=== PATIENT | male | born 1960 | race Caucasian/White ===

== ENCOUNTER 2021-02-26 07:33 | Inpatient (IN) | payer MEDICAID, MEDICARE ==
[~2021-02-26] VITALS: Ht 185.4 cm; Wt 94.1 kg
[~2021-02-26 07:33] MED LIST: BUPR150T3 PO; DOXY100T2 PO; FENO160T9 PO; FLUO20CA33 PO; GLIP10TA10 PO; LOSA25TA26 PO; MELO-106 PO; METF-414 PO; OMEP20TA2 PO; TRAZ-252 PO
[2021-02-26] MEDS ORDERED: MORPHINE SULFATE 4 MG/ML CPJ (NOT FOR IM USE) IV STA (08:06)
[2021-02-26 09:04] LABS: BASOPHILS % 0.2 % (0.0-2.0); HEMATOCRIT. 35.5 % (42.0-52.0); HEMOGLOBIN. 12.2 g/dL (14.0-18.0); LYMPHOCYTES % 14.2 % (20.0-50.0); MEAN CORPUSCULAR HEMOGLOBIN 30.3 pg (28.0-32.0); MEAN CORPUSCULAR VOLUME 88.4 fL (80.0-94.0); MEAN PLATELET VOLUME 9.4 fl (7.4-10.4); NEUTROPHILS % 73.6 % (40.0-76.0); PLATELET 97 x1000/uL (130-400); RED BLOOD CELL COUNT 4.01 mill/uL (4.7-6.1)
[2021-02-26 09:09] LABS: CHLORIDE 110 mEq/L (98-107)
[2021-02-26] MEDS ORDERED: MORPHINE SULFATE 4 MG/ML CPJ (NOT FOR IM USE) IV ONE (10:30)
[2021-02-26] MEDS ORDERED: ONDANSETRON HCL 4MG/2ML INJ IV PRN (14:30)
[2021-02-26] MEDS ORDERED: NALOXONE HCL 0.4MG/ML VIAL IV PRN (14:45)
[2021-02-26] MEDS: HYDROCODONE/ACETAMINOPHEN 5/325MG TABLET PO PRN ×2 (16:12→22:46)
[2021-02-27] MEDS ORDERED: DEXTROSE 50% WATER 50ML SYRINGE IV PRN (00:45)
[2021-02-27 02:50] VITALS: BP 158/76
[2021-02-27] MEDS ORDERED: CHOL400D7 PO (03:08)
[2021-02-27] MEDS ORDERED: MULT-1146 PO (03:08)
[2021-02-27] MEDS ORDERED: [UNRECOGNIZED DRUG - CODE] TP (03:08)
[2021-02-27] MEDS ORDERED: METF-414 PO (03:08)
[2021-02-27] MEDS ORDERED: LOSA1TAB40 MT (03:08)
[2021-02-27] MEDS ORDERED: BUPR75TA8 MT (03:08)
[2021-02-27] MEDS ORDERED: LOSA25TA26 PO (03:08)
[2021-02-27] MEDS ORDERED: TRAZ-251 PO (03:08)
[2021-02-27] MEDS ORDERED: OMEP2.5S2 PO (03:08)
[2021-02-27] MEDS ORDERED: GLIP5TAB12 PO (03:08)
[2021-02-27] MEDS ORDERED: FLUO10CA25 MT (03:08)
[2021-02-27 04:00] VITALS: BP 126/57
[2021-02-27] MEDS: BLOOD SUGAR DIAGNOSTIC STRIP TEST SCH ×4 (06:17→21:07)
[2021-02-27] MEDS: HYDROCODONE/ACETAMINOPHEN 5/325MG TABLET PO PRN ×4 (06:18→20:43)
[2021-02-27] MEDS: INSULIN LISPRO 100 UNITS/ML SUBCUT SCH ×4 (06:20→21:07)
[2021-02-27] MEDS ORDERED: INSULIN LISPRO 100 UNITS/ML SUBCUT SCH (07:10)
[2021-02-27 08:00] VITALS: BP 111/72
[2021-02-27] MEDS ORDERED: ALPR0.5T PO (08:32)
[2021-02-27] MEDS ORDERED: ALPRAZOLAM 0.5 MG TABLET PO NR (11:30)
[2021-02-27] MEDS ORDERED: TOPUD MT (11:39)
[2021-02-27] MEDS ORDERED: MAG30ORA12 PO (11:45)
[2021-02-27] MEDS ORDERED: UBID100T7 MT (11:48)
[2021-02-27 12:00] VITALS: BP 133/80
[2021-02-27] MEDS ORDERED: PNEUMOCOCCAL 23-VAL P-SAC VAC 0.5 ML IM ONE (12:00)
[2021-02-27] MEDS ORDERED: MIDO5TAB4 PO (12:02)
[2021-02-27] MEDS ORDERED: METH-773 PO (12:03)
[2021-02-27] MEDS ORDERED: ENOX40DI8 SQ (12:04)
[2021-02-27] MEDS ORDERED: HYDR-4001 PO (12:05)
[2021-02-27] MEDS ORDERED: FAMO20TA8 PO (12:19)
[2021-02-27] MEDS ORDERED: LAM2 PO (12:19)
[2021-02-27] MEDS ORDERED: DOCU-138 PO (12:19)
[2021-02-27] MEDS ORDERED: LIDO700A15 TP (12:19)
[2021-02-27] MEDS ORDERED: GABA-532 PO (12:19)
[2021-02-27 16:00] VITALS: BP 134/79
[2021-02-27 20:00] VITALS: BP 130/70
[2021-02-28] VITALS: BP 124/60
[2021-02-28] MEDS: ALPRAZOLAM 0.5 MG TABLET PO PRN ×2 (00:04→12:54)
[2021-02-28 04:00] VITALS: BP 135/73
[2021-02-28 05:27] LABS: HEMATOCRIT 38.8 % (42.0-52.0); MEAN CORPUSCULAR HEMOGLOBIN 29.9 pg (28.0-32.0); MEAN CORPUSCULAR VOLUME 89.1 fL (80.0-94.0); PLATELET 140 x1000/uL (130-400); RED BLOOD CELL COUNT 4.36 mill/uL (4.7-6.1); RED CELL DISTRIBUTION WIDTH 14.4 % (11.6-14.6)
[2021-02-28] MEDS: BLOOD SUGAR DIAGNOSTIC STRIP TEST SCH ×4 (05:58→20:10)
[2021-02-28] MEDS: INSULIN LISPRO 100 UNITS/ML SUBCUT SCH ×4 (06:00→20:16)
[2021-02-28 08:00] VITALS: BP 138/76
[2021-02-28] MEDS: HYDROCODONE/ACETAMINOPHEN 5/325MG TABLET PO PRN ×3 (08:22→20:10)
[2021-02-28] MEDS ORDERED: ENOXAPARIN 40MG/0.4ML SYR SUBCUT SCH (09:00)
[2021-02-28 12:00] VITALS: BP 143/83
[2021-02-28] MEDS: GABAPENTIN 300MG CAPSULE PO SCH ×2 (14:11→21:40)
[2021-02-28 16:00] VITALS: BP 110/67
[2021-02-28] MEDS ORDERED: DOXYCYCLINE HYCLATE PO SCH (17:00)
[2021-02-28 20:00] VITALS: BP 141/57
[2021-02-28] MEDS: ENOXAPARIN 40MG/0.4ML SYR SUBCUT SCH (20:09)
[2021-02-28] MEDS ORDERED: TRAZODONE HCL 50MG TABLET PO PRN (21:00)
[2021-03-01] VITALS: BP 108/63
[2021-03-01 04:00] VITALS: BP 108/61
[2021-03-01] MEDS: HYDROCODONE/ACETAMINOPHEN 5/325MG TABLET PO PRN ×4 (04:08→17:54)
[2021-03-01] MEDS: GABAPENTIN 300MG CAPSULE PO SCH ×3 (05:43→22:22)
[2021-03-01] MEDS: BLOOD SUGAR DIAGNOSTIC STRIP TEST SCH ×4 (05:49→21:03)
[2021-03-01] MEDS: INSULIN LISPRO 100 UNITS/ML SUBCUT SCH ×4 (06:33→21:09)
[2021-03-01 08:00] VITALS: BP 114/62
[2021-03-01] MEDS: LAMOTRIGINE 100MG TABLET PO SCH (09:01)
[2021-03-01] MEDS: FLUOXETINE HCL 20MG CAPSULE PO SCH (09:01)
[2021-03-01] MEDS: BUPROPION HCL 75MG TABLET PO SCH ×3 (09:03→17:54)
[2021-03-01 12:00] VITALS: BP 131/69
[2021-03-01 16:00] VITALS: BP 111/69
[2021-03-01 20:00] VITALS: BP 127/73
[2021-03-01] MEDS: ENOXAPARIN 40MG/0.4ML SYR SUBCUT SCH (20:58)
[2021-03-02] VITALS (7 sets, daily range): BP systolic 100–130; BP diastolic 57–74
[2021-03-02] MEDS: GABAPENTIN 300MG CAPSULE PO SCH ×3 (05:11→21:42)
[2021-03-02] MEDS: BLOOD SUGAR DIAGNOSTIC STRIP TEST SCH ×4 (05:11→20:43)
[2021-03-02] MEDS: INSULIN LISPRO 100 UNITS/ML SUBCUT SCH ×4 (05:59→21:00)
[2021-03-02] MEDS: LAMOTRIGINE 100MG TABLET PO SCH (08:37)
[2021-03-02] MEDS: BUPROPION HCL 75MG TABLET PO SCH ×2 (08:37→17:25)
[2021-03-02] MEDS: FLUOXETINE HCL 20MG CAPSULE PO SCH (08:37)
[2021-03-02] MEDS: HYDROCODONE/ACETAMINOPHEN 5/325MG TABLET PO PRN ×2 (08:38→20:06)
[2021-03-02] MEDS: ENOXAPARIN 40MG/0.4ML SYR SUBCUT SCH (20:56)
== END 2021-03-02 22:50 | DRG 552 ==
LOC: ER 07:33 → MICUSO 12:33 → EDBEDREQ 12:38 → EDBEDREQTM 12:38 → 8WST 20:59
PROVIDERS: ADMIT Internal Medicine Pulmonary Disease; ATTEND Internal Medicine Pulmonary Disease
DX: M54.2 Cervicalgia (principal); D61.818 Other pancytopenia; E44.1 Mild protein-calorie malnutrition; F33.1 Major depressive disorder, recurrent, moderate; E11.9 Type 2 diabetes mellitus without complications; M48.02 Spinal stenosis, cervical region; Z20.822 Contact with and (suspected) exposure to COVID-19; E87.8 Other disorders of electrolyte and fluid balance, not elsewhere classified; Z86.73 Personal history of transient ischemic attack (TIA), and cerebral infarction without residual deficits; Z79.84 Long term (current) use of oral hypoglycemic drugs; Z79.899 Other long term (current) drug therapy; Z68.27 Body mass index [BMI] 27.0-27.9, adult; E78.5 Hyperlipidemia, unspecified
CPT/HCPCS: 36415; 71045; 80053; 82962; 83036; 85025; 85027; 87426; 90732; 93005; 97162; 97166; 99285; A6261; J1650; J1815; J2270

== ENCOUNTER 2022-06-04 03:36 | Inpatient (IN) | payer MEDICARE, MEDICAID ==
[~2022-06-04] VITALS: Ht 365.8 cm; Wt 81.6 kg
[~2022-06-04 03:36] MED LIST changes: +ALPR0.5T PO; +APIX5TAB PO; +BUPR100T13 PO; -BUPR150T3 PO; +CHOL400D7 PO; +CYAN-50 PO; -DOXY100T2 PO; +FAMO20TA8 PO; -FENO160T9 PO; +FINA5TAB11 PO; -FLUO20CA33 PO; +FLUO60TA PO; -GLIP10TA10 PO; +GLIP5TAB12 PO; +HYDR-4001 PO; +LAM2 PO; -LOSA25TA26 PO; -MELO-106 PO; -METF-414 PO; +METF-416 PO; +MIDO2.5T PO; -OMEP20TA2 PO; +PRAV40TA58 PO; +TAMS-11 PO; +TOPUD MT; -TRAZ-252 PO
[2022-06-04 04:47] LABS: BASOPHILS % 0.4 % (0.0-2.0); EOSINOPHILS % 2.5 % (0.0-5.0); HEMOGLOBIN. 10.2 g/dL (14.0-18.0); LYMPHOCYTES % 23.6 % (20.0-50.0); MEAN CORPUSCULAR HEMOGLOBIN 29.9 pg (28.0-32.0); MEAN CORPUSCULAR VOLUME 87.6 fL (80.0-94.0); MEAN PLATELET VOLUME 7.9 fl (7.4-10.4); MONOCYTES % 5.7 % (2.0-8.0); NEUTROPHILS % 67.8 % (40.0-76.0); PLATELET 214 x1000/uL (130-400); RED BLOOD CELL COUNT 3.42 mill/uL (4.7-6.1); RED CELL DISTRIBUTION WIDTH 14.3 % (11.6-14.6)
[2022-06-04 04:55] LABS: CHLORIDE 108 mEq/L (98-107)
[2022-06-04 05:05] LABS: ETHANOL BLOOD < 10 mg/dL
[2022-06-04 05:13] LABS: INR 1.2; PROTHROMBIN TIME 12.3 sec (9.6-11.0)
[2022-06-04] MEDS ORDERED: IOHEXOL-350 100 ML BOTTLE ONE (05:47)
[2022-06-04] MEDS ORDERED: CLOPIDOGREL 75MG TABLET PO ONE (09:00)
[2022-06-04] MEDS ORDERED: ASPIRIN 81MG TABLET PO ONE (09:00)
[2022-06-04] MEDS ORDERED: CLOPIDOGREL 75MG TABLET PO NR (11:00)
[2022-06-04] MEDS ORDERED: ASPIRIN 81MG TABLET PO NR (11:00)
[2022-06-04] MEDS: ENOXAPARIN 40MG/0.4ML SYR SUBCUT SCH (11:22)
[2022-06-04 11:24] LABS: CLARITY URINE CLEAR (CLEAR); COLOR URINE YELLOW (YELLOW); KETONES URINE NEGATIVE (NEGATIVE); LEUKOCYTE ESTERASE URINE NEGATIVE (NEGATIVE); NITRITE URINE NEGATIVE (NEGATIVE); OCCULT BLOOD URINE NEGATIVE (NEGATIVE); PROTEIN URINE NEGATIVE (NEGATIVE); SPECIFIC GRAVITY URINE 1.054 (1.005-1.030)
[2022-06-04 12:07] LABS: *AMPHETAMINES SCREEN URINE NEGATIVE (NEGATIVE); *BARBITURATES SCREEN URINE NEGATIVE (NEGATIVE); *BENZODIAZEPINES SCREEN URINE NEGATIVE (NEGATIVE); *COCAINE SCREEN URINE NEGATIVE (NEGATIVE); CANNABINOID URINE SCREEN NEGATIVE (NEGATIVE); METHADONE URINE SCREEN NEGATIVE (NEGATIVE); OPIATES URINE SCREEN PRESUMTIVE POSITIVE (NEGATIVE); PHENCYCLIDINE URINE SCREEN NEGATIVE (NEGATIVE)
[2022-06-04 17:37] VITALS: BP 117/71
[2022-06-04 19:15] VITALS: BP 144/94
[2022-06-04] MEDS ORDERED: ATORVASTATIN CALCIUM 40MG TABLET PO SCH (21:00)
[2022-06-04 21:06] VITALS: BP 138/78
[2022-06-05] VITALS: BP 123/75
[2022-06-05 04:11] VITALS: BP 142/81
[2022-06-05 08:00] VITALS: BP 112/68
[2022-06-05 08:42] LABS: BASOPHILS % 0.9 % (0.0-2.0); EOSINOPHILS % 2.6 % (0.0-5.0); HEMATOCRIT. 33.7 % (42.0-52.0); HEMOGLOBIN. 11.6 g/dL (14.0-18.0); LYMPHOCYTES % 23.8 % (20.0-50.0); MEAN CORPUSCULAR HEMOGLOBIN 30.1 pg (28.0-32.0); MEAN CORPUSCULAR VOLUME 87.1 fL (80.0-94.0); MEAN PLATELET VOLUME 8.5 fl (7.4-10.4); MONOCYTES % 4.4 % (2.0-8.0); NEUTROPHILS % 68.3 % (40.0-76.0); PLATELET 241 x1000/uL (130-400); RED BLOOD CELL COUNT 3.86 mill/uL (4.7-6.1); RED CELL DISTRIBUTION WIDTH 14.1 % (11.6-14.6)
[2022-06-05] MEDS ORDERED: ASPIRIN 81MG TABLET PO SCH (09:00)
[2022-06-05 09:09] LABS: CHLORIDE 106 mEq/L (98-107)
[2022-06-05] MEDS ORDERED: DEXTROSE 50% WATER 50ML SYRINGE IV PRN (10:15)
[2022-06-05] MEDS ORDERED: BLOOD SUGAR DIAGNOSTIC STRIP TEST SCH (11:50)
[2022-06-05 12:00] VITALS: BP 110/68
[2022-06-05] MEDS ORDERED: CYANOCOBALAMIN 1000MCG/ML VIAL IM NR (12:00)
[2022-06-05] MEDS: ENOXAPARIN 40MG/0.4ML SYR SUBCUT SCH (12:10)
[2022-06-05] MEDS ORDERED: INSULIN LISPRO 100 UNITS/ML SUBCUT SCH (12:20)
[2022-06-05 14:09] LABS: VITAMIN B12 SERUM 1840 pg/mL (211-911)
[2022-06-05 16:00] VITALS: BP 118/68
[2022-06-05 16:31] VITALS: BP 118/68
[2022-06-05] MEDS ORDERED: GUAIFENESIN 600MG ER TABLET PO SCH (21:00)
== END 2022-06-05 17:40 | disposition home or self-care (01) | DRG 314 ==
LOC: ER 03:36 → 3WST 08:53
PROVIDERS: ADMIT Internal Medicine Pulmonary Disease; ATTEND Internal Medicine Pulmonary Disease
DX: I95.9 Hypotension, unspecified (principal); G93.41 Metabolic encephalopathy; G45.9 Transient cerebral ischemic attack, unspecified; E44.0 Moderate protein-calorie malnutrition; Z68.1 Body mass index [BMI] 19.9 or less, adult; E11.40 Type 2 diabetes mellitus with diabetic neuropathy, unspecified; D64.9 Anemia, unspecified; F99 Mental disorder, not otherwise specified; Z20.822 Contact with and (suspected) exposure to COVID-19; R47.1 Dysarthria and anarthria; R27.0 Ataxia, unspecified; Z86.73 Personal history of transient ischemic attack (TIA), and cerebral infarction without residual deficits; Z90.49 Acquired absence of other specified parts of digestive tract; Z98.84 Bariatric surgery status; Z86.16 Personal history of COVID-19; Z79.899 Other long term (current) drug therapy
CPT/HCPCS: 36415; 70496; 70498; 70551; 71045; 80048; 80053; 80061; 80305; 80320; 81003; 82607; 82962; 83036; 83605; 84443; 84484; 85025; 86850; 86900; 87426; 92610; 97162; 97166; 99291; J1650; J1815; J3420; Q9967; G0480

== ENCOUNTER 2022-09-05 13:31 | Emergency (ER) | payer MEDICARE, MEDICAID ==
[~2022-09-05] VITALS: Ht 185.4 cm; Wt 84.0 kg
[2022-09-05 14:30] VITALS: BP 100/55
[2022-09-05 15:31] LABS: CHLORIDE 105 mEq/L (98-107)
[2022-09-05 15:34] LABS: BASOPHILS % 0.2 % (0.0-2.0); EOSINOPHILS % 1.4 % (0.0-5.0); HEMATOCRIT. 40.3 % (42.0-52.0); HEMOGLOBIN. 13.4 g/dL (14.0-18.0); MEAN CORPUSCULAR HEMOGLOBIN 26.4 pg (28.0-32.0); MEAN CORPUSCULAR VOLUME 79.2 fL (80.0-94.0); MEAN PLATELET VOLUME 8.8 fl (7.4-10.4); MONOCYTES % 3.4 % (2.0-8.0); PLATELET 167 x1000/uL (130-400); RED BLOOD CELL COUNT 5.09 mill/uL (4.7-6.1)
[2022-09-05 16:39] LABS: CLARITY URINE CLEAR (CLEAR); COLOR URINE YELLOW (YELLOW); KETONES URINE NEGATIVE (NEGATIVE); LEUKOCYTE ESTERASE URINE NEGATIVE (NEGATIVE); NITRITE URINE NEGATIVE (NEGATIVE); OCCULT BLOOD URINE NEGATIVE (NEGATIVE); PH URINE 5.5 (4.5-8.0); PROTEIN URINE NEGATIVE (NEGATIVE); SPECIFIC GRAVITY URINE 1.015 (1.005-1.030)
[2022-09-05] MEDS ORDERED: BISA5TAB PO (16:48)
[2022-09-05] MEDS ORDERED: DOCU-150 MT (16:48)
== END 2022-09-05 18:31 | disposition home or self-care (01) ==
LOC: ER 13:41
DX: R33.9 Retention of urine, unspecified (principal); N40.0 Benign prostatic hyperplasia without lower urinary tract symptoms; E11.9 Type 2 diabetes mellitus without complications; Z86.73 Personal history of transient ischemic attack (TIA), and cerebral infarction without residual deficits; I95.9 Hypotension, unspecified; Z90.49 Acquired absence of other specified parts of digestive tract; Z79.899 Other long term (current) drug therapy
CPT/HCPCS: 36415; 51702; 80053; 81003; 82962; 83605; 85025; 99283; A4315

== ENCOUNTER 2023-11-30 20:22 | Emergency (ER) | payer MEDICARE, MEDICAID ==
[~2023-11-30] VITALS: Ht 185.4 cm; Wt 88.0 kg
[~2023-11-30 20:22] MED LIST changes: +BISA5TAB PO; +DOCU-150 MT; -GLIP5TAB12 PO
[2023-11-30 20:37] VITALS: TEMP 98.9; O2SAT 98
[2023-11-30] MEDS: LEVETIRACETAM 1000MG PREMIX 100 ML IV ONE (23:13)
[2023-11-30 23:30] LABS: BASOPHILS % 0.2 % (0.0-2.0); EOSINOPHILS % 2.2 % (0.0-5.0); HEMATOCRIT. 32.5 % (42.0-52.0); HEMOGLOBIN. 10.9 g/dL (14.0-18.0); LYMPHOCYTES % 23.2 % (20.0-50.0); MEAN CORPUSCULAR HEMOGLOBIN 29.4 pg (28.0-32.0); MEAN CORPUSCULAR HGB CONC 33.6 g/dL (31.0-37.0); MEAN CORPUSCULAR VOLUME 87.6 fL (80.0-94.0); MEAN PLATELET VOLUME 8.6 fl (7.4-10.4); MONOCYTES % 5.9 % (2.0-8.0); NEUTROPHILS % 68.5 % (40.0-76.0); PLATELET 131 x1000/uL (130-400); RED BLOOD CELL COUNT 3.71 mill/uL (4.7-6.1); RED CELL DISTRIBUTION WIDTH 17.2 % (11.6-14.6); WHITE BLOOD COUNT 5.6 x1000/uL (4.5-11.0)
[2023-11-30 23:39] LABS: CHLORIDE 111 mEq/L (98-107); POTASSIUM 3.9 mEq/L (3.5-5.1); SODIUM 142 mEq/L (136-145)
[2023-11-30 23:40] LABS: CARBON DIOXIDE 24 mEq/L (21-32)
[2023-11-30 23:41] LABS: CALCIUM 8.1 mg/dL (8.7-10.4)
[2023-11-30 23:45] LABS: CREATININE 0.6 mg/dL (0.6-1.3); GLUCOSE 124 mg/dL (70-105); UREA NITROGEN BLOOD 11 mg/dL (9-23)
[2023-12-01] MEDS ORDERED: LAM2 MT (01:15)
[2023-12-01] MEDS: IBUPROFEN 600MG TABLET PO NR (01:45)
[2023-12-01] MEDS ORDERED: IBUPROFEN 600MG TABLET PO ONE (01:45)
[2023-12-01 03:44] VITALS: BP 130/69; PULSE 75; RESP 19
== END 2023-12-01 03:45 | disposition home or self-care (01) ==
LOC: ER 20:22
DX: R56.9 Unspecified convulsions (principal); E11.9 Type 2 diabetes mellitus without complications; E78.00 Pure hypercholesterolemia, unspecified; F15.90 Other stimulant use, unspecified, uncomplicated; I10 Essential (primary) hypertension; Z90.49 Acquired absence of other specified parts of digestive tract; Z98.890 Other specified postprocedural states
CPT/HCPCS: 99284; 96365; 96366; 80048; 82962; 85025; 36415; J1953